=== PATIENT | male | born 1980 | race Caucasian/White ===

== ENCOUNTER → 2020-04-26 | Outpatient (CLI) | payer OTHER | LOC: M.LAB 07:47 | PROVIDERS: ATTEND Internal Medicine Cardiovascular Disease | DX: Z11.59 Encounter for screening for other viral diseases (principal) ==

== ENCOUNTER → 2021-06-22 | Outpatient (CLI) | payer OTHER | LOC: M.MRI 09:30 | PROVIDERS: ATTEND Orthopaedic Surgery | DX: M25.471 Effusion, right ankle (principal); M79.89 Other specified soft tissue disorders; M77.51 Other enthesopathy of right foot and ankle; M25.571 Pain in right ankle and joints of right foot ==